=== PATIENT | female | born 1960 | race Caucasian/White ===

== ENCOUNTER 2018-04-18 15:24 | Emergency (ER) | payer OTHER ==
[2018-04-18 16:01] VITALS: BP 149/78
--- NOTE | 2018-04-18 17:30 | UC ---
Lower Extremity/Ankle HPI - HPI Summary HPI Summary: 57 yo woman with known lumbar stenosis, morbid obesity, with one week of increasing right posterior knee pain with difficulty weight bearing. Yesterday she realized that it was a struggle to walk the corridor at [facility], and this concerned her. She is having increased problems getting around the house and perforiming her work. Takes occasional ibuprofen for headache, but has not taken anything for this pain. - History of Current Complaint Chief Complaint: UCLowerExtremity Stated Complaint: RIGHT LEG PAIN Time Seen by Provider: 04/18/18 17:19 Hx Obtained From: Patient Onset/Duration: Gradual Onset, Lasting Days - about7 Severity Initially: Moderate Severity Currently: Moderate Pain Intensity: 7 Aggravating Factor(s): Ambulation Alleviating Factor(s): Rest Able to Bear Weight: Yes - Risk Factors Gout Risk Factors: Age Over 40, Obesity DVT Risk Factors: Smoking Septic Arthritis Risk Factor: Negative - Allergies/Home Medications Allergies/Adverse Reactions: Allergies Allergy/AdvReac Type Severity Reaction Status Date / Time Iodinated Contrast- Oral and Allergy Anaphylatic Verified 04/18/18 15:59 IV Dye Shock ANTIDOTE FOR CONTRAST DYE Allergy Severe See Comment Uncoded 04/18/18 15:59 PMH/Surg Hx/FS Hx/Imm Hx - Additional Past Medical History Additional PMH: Has not had regular medical care, with increasing problems with gait and ADL's. Lumbar stenosis diagnosed last year. Previously Healthy: No Endocrine History: Other - prediabetes when screened 2 years ago Cardiovascular History: Hypertension - aware blood pressure is high, has not gone to see an MD. She is doing home checks that go up to 160/90 Respiratory History: Other - smoking dependent. - Surgical History Surgical History: Yes Surgery Procedure, Year, and Place: Appendectomy, 2011, [place] - Family History Known Family History: Positive: Cardiac Disease, Diabetes - Social History Occupation: Employed Full-time - works in a [employer]. Lives: With Family Alcohol Use: None Substance Use Type: None Smoking Status (MU): Heavy Every Day Tobacco Smoker Type: Cigarettes Amount Used/How Often: 1 PPD Length of Time of Smoking/Using Tobacco: 42 Years Have You Smoked in the Last Year: Yes - Immunization History Most Recent Tetanus Shot: "I don't remember." Review of Systems All Other Systems Reviewed And Are Negative: Yes Constitutional: Positive: Fatigue Skin: Positive: Other - stasis dermatitis both legs. Eyes: Positive: Negative ENT: Positive: Negative Respiratory: Positive: Cough - chronic cough, assumed secondary to smoking. Cardiovascular: Positive: Other - blood pressure elevated. Genitourinary: Positive: Negative Motor: Positive: Decreased ROM, Weakness Neurovascular: Positive: Negative Musculoskeletal: Positive: Arthralgia, Myalgia Neurological: Positive: Negative Psychological: Positive: Negative Is Patient Immunocompromised?: No Physical Exam Triage Information Reviewed: Yes Appearance: Ill-Appearing - looks chronically unwell, Pain Distress - moderate. Gait is antalgic, wide based, slow with left valgus deformity of the LE, Obese Vital Signs: Initial Vital Signs Temp 97.9 F 04/18/18 15:55 Pulse 98 04/18/18 15:55 Resp 21 04/18/18 15:55 BP 149/78 04/18/18 15:55 Pulse Ox 98 04/18/18 15:55 Vital Signs Reviewed: Yes Eyes: Positive: Conjunctiva Clear ENT: Positive: Pharynx normal Dental Exam: Other - upper dentures Dental: Positive: Gross Decay/Caries @ Neck: Positive: Supple, Nontender, No Lymphadenopathy Respiratory: Positive: Decreased breath sounds, Wheezing - scattered wheezes. Cardiovascular: Positive: RRR, Murmur:Sys:Grade _?_/ - 2/6 systolic murmur left sternal border. Musculoskeletal: Positive: ROM Limited @ - right knee with active rom to 90 degrees with pain. No joint line tenderness. Tenderness without swelling in the popliteal fossa. Neurological: Positive: Alert, Muscle Tone Normal Skin Exam: Other - stasis dermatitis both forelegs. thick long nails both feet. Diagnostics - Radiology abnormal Radiology Interpretation Completed By: ED Physician Summary of Radiographic Findings: mild left posterior compartment arthritis, no bony abnormality Lower Extremity Course/Dx - Course Course Of Treatment: PT for knee treatment; PMD JAMES for work up of elevated blood pressure and high weight, lumbar stenosis, prediabetes. ibuprofen 400mg tid, ice to right knee. - Differential Dx/Diagnosis Differential Diagnosis/HQI/PQRI: Contusion, Sprain, Strain, Other - arthritis right knee, meniscal tear right knee. Provider Diagnosis: Right knee pain Discharge - Sign-Out/Discharge Documenting (check all that apply): Patient Departure All imaging exams completed and their final reports reviewed: No - Discharge Plan Condition: Stable Disposition: HOME Patient Education Materials: Knee Pain (ED) Forms: *Work Release Referrals: Gopi Mercedes MD [Primary Care Provider] - Additional Instructions: Follow up with Dr. Mercedes is essential. You have documented elevated blood pressures and likely need treatment. The progressive restriction you are experiencing with walking is concerning and needs to be addressed. For right leg pain, begin use of ibuprofen 400mg three times daily with food. Ice the knee for 15 minutes every 2 to 3 hours. You have a referral for PT for suspected soft tissue damage to the knee, possible meniscal tearing. - Billing Disposition and Condition Condition: STABLE Disposition: Home
--- NOTE | 2018-04-19 07:15 | UC ---
- Progress Note Progress Note: xray report right knee: INDICATION: Right knee pain. TECHNIQUE: 4 views of the right knee were obtained. FINDINGS: The bones are in normal alignment. No joint effusion or fracture is seen. Joint spaces appear maintained. IMPRESSION: NO EVIDENCE FOR FRACTURE. Course/Dx - Diagnoses Provider Diagnoses: Right knee pain Discharge - Sign-Out/Discharge Documenting (check all that apply): Patient Departure All imaging exams completed and their final reports reviewed: No - Discharge Plan Condition: Stable Disposition: HOME Patient Education Materials: Knee Pain (ED) Forms: *Work Release Referrals: Gopi Mercedes MD [Primary Care Provider] - Additional Instructions: Follow up with Dr. Mercedes is essential. You have documented elevated blood pressures and likely need treatment. The progressive restriction you are experiencing with walking is concerning and needs to be addressed. For right leg pain, begin use of ibuprofen 400mg three times daily with food. Ice the knee for 15 minutes every 2 to 3 hours. You have a referral for PT for suspected soft tissue damage to the knee, possible meniscal tearing. - Billing Disposition and Condition Condition: STABLE Disposition: Home
--- NOTE | 2018-04-19 07:17 | UC ---
- Progress Note Progress Note: xray right knee : INDICATION: Right knee pain. TECHNIQUE: 4 views of the right knee were obtained. FINDINGS: The bones are in normal alignment. No joint effusion or fracture is seen. Joint spaces appear maintained. IMPRESSION: NO EVIDENCE FOR FRACTURE. Course/Dx - Diagnoses Provider Diagnoses: Right knee pain Discharge - Sign-Out/Discharge Documenting (check all that apply): Patient Departure All imaging exams completed and their final reports reviewed: Yes - Discharge Plan Condition: Stable Disposition: HOME Patient Education Materials: Knee Pain (ED) Forms: *Work Release Referrals: Gopi Mercedes MD [Primary Care Provider] - Additional Instructions: Follow up with Dr. Mercedes is essential. You have documented elevated blood pressures and likely need treatment. The progressive restriction you are experiencing with walking is concerning and needs to be addressed. For right leg pain, begin use of ibuprofen 400mg three times daily with food. Ice the knee for 15 minutes every 2 to 3 hours. You have a referral for PT for suspected soft tissue damage to the knee, possible meniscal tearing. - Billing Disposition and Condition Condition: STABLE Disposition: Home
== END 2018-04-18 18:33 | disposition home or self-care (01) ==
LOC: UCCORT 15:24
DX: M25.561 Pain in right knee (principal); M48.061 Spinal stenosis, lumbar region without neurogenic claudication; E66.01 Morbid (severe) obesity due to excess calories; I10 Essential (primary) hypertension; F17.210 Nicotine dependence, cigarettes, uncomplicated; R05 Cough; R73.03 Prediabetes; Z91.041 Radiographic dye allergy status
CPT/HCPCS: 99211; G0463